=== PATIENT | male | born 1960 | race Caucasian/White ===

== ENCOUNTER 2017-04-25 09:25 | Day surgery (SDC) | payer MEDICAID ==
[2017-04-25] MEDS ORDERED: LR 1,000 ML IV ONE (09:35)
[2017-04-25] MEDS ORDERED: LIDOCAINE 1% 2 ML INJ ID PRN (09:35)
[2017-04-25] MEDS ORDERED: MIDAZOLAM 2 MG/2 ML VIAL ONE (12:19)
[2017-04-25] MEDS ORDERED: PROPOFOL/EMULSION 500 MG/50 ML BOTTLE IV ONE (12:19)
--- NOTE | 2017-04-25 12:23 | PDGENHP ---
History & Physical Chief Complaint: family hx of colon polyps Relevant Physical Exam: GEN: NAD. Cardiac: RRR. Lungs: CTA B. Abd: Soft, nt, nd
--- NOTE | 2017-04-25 12:28 | PDANEPAE ---
ANE History of Present Illness colonoscopy ANE Past Medical History - Cardiovascular History Hx Hypertension: No Hx Arrhythmias: No Hx Chest Pain: No Hx Coronary Artery / Peripheral Vascular Disease: No Hx CHF / Valvular Disease: No Hx Palpitations: No Cardiovascular History Comment: high chol - Pulmonary History Hx COPD: No Hx Asthma/Reactive Airway Disease: No Hx Recent Upper Respiratory Infection: No Hx Oxygen in Use at Home: No Hx Sleep Apnea: No Sleep Apnea Screening Result - Last Documented: Negative - Neurologic History Hx Cerebrovascular Accident: No Hx Seizures: No Hx Dementia: No - Endocrine History Hx Diabetes: No - Renal History Hx Renal Disorders: Yes Renal History Comment: bph - Liver History Hx Hepatic Disorders: No - Neurological & Psychiatric Hx Hx Neurological and Psychiatric Disorders: Yes Neurological / Psychiatric History Comment: depression - Cancer History Hx Cancer: No - Congenital Disorder History Hx Congenital Disorders: No - GI History Hx Gastrointestinal Disorders: No - Other Health History Other Health History: none - Chronic Pain History Chronic Pain: No - Surgical History Prior Surgeries: right ankle surgery ANE Review of Systems - Exercise capacity METS (RN): 4 METS ANE Patient History - Allergies Allergies/Adverse Reactions: Sulfa (Sulfonamide Antibiotics) Allergy (Verified 03/29/17 12:43) Rash - Home Medications Home Medications: Herbals/Supplements -Info Only 03/29/17 [Last Taken 1 Week Ago] - NPO status NPO Since - Liquids (Date): 04/25/17 NPO Since - Liquids (Time): 01:00 NPO Since - Solids (Date): 04/24/17 NPO Since - Solids (Time): 08:55 - Anes Hx Anes Hx: no prior problems - Smoking Hx Smoking Status: Never smoked - Family Anes Hx Family Hx Anesthesia Complications: none ANE Labs/Vital Signs - Vital Signs Blood Pressure: 118/78 Heart Rate: 55 Respiratory Rate: 18 O2 Sat (%): 96 Height: 182.88 cm Weight: 95.254 kg ANE Physical Exam - Airway Mallampati Score: Class 2 Mouth exam: normal dental/mouth exam - Pulmonary Pulmonary: no respiratory distress - Cardiovascular Cardiovascular: regular rate and rhythym - ASA Status ASA Status: I ANE Anesthesia Plan Anesthesia Plan: GA with mask
[2017-04-25] MEDS ORDERED: LR 500 ML IV PRN (12:29)
[2017-04-25] MEDS ORDERED: ONDANSETRON 4 MG/2 ML VIAL IVP PRN (12:29)
[2017-04-25] MEDS ORDERED: MEPERIDINE 25 MG/ML SYR IVP PRN (12:29)
[2017-04-25] MEDS ORDERED: NALOXONE HCL 0.4 MG/ML INJ IVP PRN (12:29)
[2017-04-25] MEDS ORDERED: fentaNYL 100 MCG/2 ML INJ IVP PRN (12:29)
--- NOTE | 2017-04-25 12:51 | POSTANESTH ---
Post Anesthetic Evaluation Cardiovascular Status: Normal, Stable Respiratory Status: Normal, Stable Level of Consciousness/Mental Status: Can Participate in Eval, Mildly Sleepy, Arousable Pain Control: Adequate, Prn Tx Ordered Nausea/Vomiting Control: Adequate, Prn Tx Ordered Complications Possibly Related to Anesthesia: None Noted
--- NOTE | 2017-04-25 12:54 | POSTOPPROG ---
Post Op Note Date of Operation: 04/25/17 Surgeon: Ranulfo Montaño Pre-op Diagnosis: family history colon cancer Post-op Diagnosis: colon polyps Indication: family history of colon cancer Procedure: colonoscopy with snare Findings: cecal, transverse colon polyps 1-2 mm in size Inf/Abcess present in the surg proc area at time of surgery?: No
[2017-04-25 13:20] VITALS: RESP 20
[2017-04-25 13:26] VITALS: BP 115/79; PULSE 54; TEMP 97.2; O2SAT 98
--- NOTE | 2017-04-25 14:28 | GOP ---
[f rep st] OPERATIVE REPORT DATE OF OPERATION: SURGEON: Ranulfo Montaño MD PREOPERATIVE DIAGNOSIS: Family history of colon polyps. POSTOPERATIVE DIAGNOSIS: Colon polyps, status post removal. PROCEDURE PERFORMED: Colonoscopy with snare. FINDINGS: ESTIMATED BLOOD LOSS: Minimal. INDICATIONS: The patient is a 56-year-old male with a strong family history of colon cancer and col on polyps, who is here for high-risk screening colonoscopy. The risks and benefits of the procedure discussed with the patient and consent obtained. Risks include, but are not limited to, bleeding, perforation, or risks associated with sedation. The patient is ASA class I. DESCRIPTION OF PROCEDURE: The adult colonoscope was advanced inserted to the terminal ileum, which appears Normal. The cecum shows 3 mm polyp, which was removed using cold snare polypectomy and sent off to Pathology. The ascending colon and hepatic flexure appear normal. In the transverse colon, an additional 3 mm transverse colon polyp was seen, which was removed using cold snare polypectomy- type technique as well and sent off to Pathology. The splenic flexure, descending colon, sigmoid co mara, and rectum appeared normal. Retroflexed views in the rectum were normal. BIOPSIES TAKEN: Yes COMPLICATIONS: None. IMPRESSION: 1. Two small colon polyps removed measuring 3 mm from the cecum and transverse colon using cold sna re polypectomy technique. 2. Otherwise normal colonoscopy. RECOMMENDATIONS: 1. Advance diet as tolerated. 2. Discharge home with escort. 3. Continue current medications. 4. Repeat colonoscopy in 5 years given family history and colon polyps. 5. Follow up for the final biopsy results; results available within 10 days. Thank you for allowing me to participate in care of your patient. Please do not hesitate to call fo r any questions. /[id number]/MODL
== END 2017-04-25 13:37 | disposition home or self-care (01) ==
LOC: FSGY 09:25
PROVIDERS: ATTEND Internal Medicine Gastroenterology
PROC: 0DBL7ZX Excision of Transverse Colon, Via Natural or Artificial Opening, Diagnostic (ICD-10-PCS; principal; 2017-04-25 11:00)
PROC: 0DJD8ZZ Inspection of Lower Intestinal Tract, Via Natural or Artificial Opening Endoscopic (ICD-10-PCS; principal; 2017-04-25 11:00)
PROC: 0DBH7ZX Excision of Cecum, Via Natural or Artificial Opening, Diagnostic (ICD-10-PCS; principal; 2017-04-25 11:00)
CPT/HCPCS: J2250; J2704